=== PATIENT | female | born 1985 | race Caucasian/White ===

== ENCOUNTER 2017-09-26 16:35 | Emergency (ER) | payer MEDICAID ==
[~2017-09-26] VITALS: Ht 162.6 cm; Wt 54.0 kg
[2017-09-26 16:45] VITALS: BP 118/78
== END 2017-09-26 18:34 | disposition left against medical advice (07) ==
LOC: ER 16:37
DX: J02.8 Acute pharyngitis due to other specified organisms (principal); M54.2 Cervicalgia; R13.10 Dysphagia, unspecified; F15.10 Other stimulant abuse, uncomplicated; F17.200 Nicotine dependence, unspecified, uncomplicated
CPT/HCPCS: 87081; 87880; 99284

== ENCOUNTER 2018-06-16 00:39 | Emergency (ER) | payer MEDICAID ==
[~2018-06-16] VITALS: Ht 162.6 cm; Wt 48.0 kg
[2018-06-16 00:50] VITALS: BP 139/94
[2018-06-16] MEDS ORDERED: NAPR-56 PO (03:10)
[2018-06-16] MEDS ORDERED: naproxen 500mg tablet PO ONE (03:10)
== END 2018-06-16 03:21 | disposition home or self-care (01) ==
LOC: ER 00:40
DX: S83.241A Other tear of medial meniscus, current injury, right knee, initial encounter (principal); F15.10 Other stimulant abuse, uncomplicated; X50.1XXA Overexertion from prolonged static or awkward postures, initial encounter; Y93.89 Activity, other specified; Y92.89 Other specified places as the place of occurrence of the external cause; Y99.8 Other external cause status
CPT/HCPCS: 29505; 73564; 99283